=== PATIENT | male | born 1960 | race Caucasian/White ===

== ENCOUNTER 2017-03-26 14:11 | Emergency (ER) | payer OTHER ==
[~2017-03-26] VITALS: Ht 177.8 cm; Wt 119.8 kg
[~2017-03-26 14:11] MED LIST: ASPI325T PO; LISI-360 PO; SIMV20 PO
[2017-03-26 14:36] VITALS: BP 181/85; PULSE 68; RESP 16; TEMP 98.9; O2SAT 96
[2017-03-26] MEDS ORDERED: AMLO2.5T PO (14:51)
[2017-03-26] MEDS ORDERED: LISI10TA3 PO (14:52)
[2017-03-26] MEDS ORDERED: ASPI325T PO (14:52)
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
[2017-03-26] MEDS ORDERED: ORPHENADRINE INJ 60 MG/2 ML AMP IM ONE (16:30)
[2017-03-26] MEDS ORDERED: KETOROLAC TROMETHAMINE 60 MG/2 ML (IM) VIAL IM ONE (16:30)
== END 2017-03-26 16:54 | disposition home or self-care (01) ==
LOC: PHEFT 14:11
DX: M54.6 Pain in thoracic spine (principal); R51 Headache; M54.2 Cervicalgia; I10 Essential (primary) hypertension; V49.49XA Driver injured in collision with other motor vehicles in traffic accident, initial encounter; Z72.0 Tobacco use
CPT/HCPCS: 72125; 72128; 96372; 99285; J1885; J2360